=== PATIENT | female | born 1950 | race African-American/Black ===

== ENCOUNTER 2018-07-14 01:54 | Emergency (ER) | payer OTHER ==
[~2018-07-14] VITALS: Ht 157.5 cm; Wt 102.1 kg
[~2018-07-14 01:54] MED LIST: CALCIUM-MAGNES1 EAC5 PO; COD LIVER OIL1 EAC4 PO; FLEXERIL PO; NAPROSYN500 MG PO; NORCO 5-325 TA1 EACH PO; NORVASC5 MG PO
[2018-07-14] MEDS ORDERED: MORPHINE SULFAT15 M3 PO (03:31)
[2018-07-14] MEDS ORDERED: ONDANSETRON HCL4 M2 PO (04:35)
[2018-07-14 04:44] VITALS: BP 150/78
== END 2018-07-14 04:46 | disposition home or self-care (01) ==
LOC: ER 01:54
DX: M25.511 Pain in right shoulder (principal); M25.531 Pain in right wrist; Z88.5 Allergy status to narcotic agent; Z88.8 Allergy status to other drugs, medicaments and biological substances; W01.0XXA Fall on same level from slipping, tripping and stumbling without subsequent striking against object, initial encounter; Y93.89 Activity, other specified; Y92.89 Other specified places as the place of occurrence of the external cause; Y99.8 Other external cause status

== ENCOUNTER 2021-03-11 19:05 | Emergency (ER) | payer OTHER ==
[~2021-03-11] VITALS: Ht 157.5 cm; Wt 99.8 kg
[~2021-03-11 19:05] MED LIST changes: +MORPHINE SULFAT15 M3 PO; +ONDANSETRON HCL4 M2 PO
[2021-03-11 21:12] LABS: ABSOLUTE NEUTROPHILS 3.7 thou/uL (1.4-8.2); BASOPHILS 0.5 % (0.0-2.0); EOSINOPHILS 5.3 % (0.0-3.0); HEMATOCRIT 34.1 % (37.0-47.0); LYMPHOCYTES 24.7 % (24.0-44.0); MCH 27.7 pg (26.0-34.0); MCHC 32.2 g/dL (28.0-37.0); MCV 86.2 fL (80.0-100.0); MONOCYTES 8.8 % (1.0-8.0); PLATELET COUNT 283 thou/uL (150-400); POLYS 60.7 % (36.0-66.0); RBC 3.95 mil/uL (4.20-5.00); RDW 14.4 % (10.5-14.5); WBC 6.1 thou/uL (4.0-11.0)
[2021-03-11 21:45] LABS: ANION GAP 11 mmol/L (7-16); BUN 20 mg/dL (7-18); CALCIUM 8.8 mg/dL (8.5-10.1); CHLORIDE 106 mmol/L (98-107); CO2 26 mmol/L (21-32); CREATININE 1.2 mg/dL (0.6-1.0); GLUCOSE 114 mg/dL (74-106); POTASSIUM 3.4 mmol/L (3.5-5.1); SODIUM 143 mmol/L (136-145)
[2021-03-11 21:53] LABS: TROPONIN-I <0.06 ng/mL (<0.06)
[2021-03-11] MEDS ORDERED: MOBIC15 MG PO (22:13)
[2021-03-11 22:20] VITALS: BP 169/81
--- NOTE | 2021-03-13 15:05 | EKG ---
[place] [address] [facility] [place] [address] ELECTROCARDIOGRAM REPORT Name: TALHA EARLY Room #: [facility]P [id number] Admission: 03/11/21 Attend Phys: Discharge: 03/11/21 Date of : 52 Report #: [id number] [facility] ED Test Date: 2021-03-11 Test Time: 19:18:21 Pat Name: TALHA EARLY Department: Room: Gender: F Machine [employer]: DALY Coombs : 1950 Requested By: Aniya Do Order Number: [id number] MD: Garland Christianson Measurements Intervals [place] Rate: 81 P: 9 WI: 185 QRS: -1 QRSD: 79 T: 119 QT: 411 QTc: 477 Interpretive Statements Sinus rhythm Probable inferior infarct, recent Poor R wave progression No previous ECG available for comparison Electronically Signed On 03-13-2021 15:05:04 CDT by Garland Christianson [email or web address] <ELECTRONICALLY SIGNED> By: Garland Christianson MD, [facility] 03/13/21 1505 1918 17 Garland Christianson MD, FACC /EPI
== END 2021-03-11 22:20 | disposition home or self-care (01) ==
LOC: ER 19:05
PROVIDERS: Emergency Medicine
DX: M62.830 Muscle spasm of back (principal); R07.89 Other chest pain; M25.512 Pain in left shoulder; I10 Essential (primary) hypertension; Z88.8 Allergy status to other drugs, medicaments and biological substances; Z88.5 Allergy status to narcotic agent